=== PATIENT | female | born 1950 | race Caucasian/White ===

== ENCOUNTER 2023-11-12 20:40 | Inpatient (IN) | payer MEDICARE ==
[~2023-11-12] VITALS: Ht 160 cm; Wt 94.8 kg
[2023-11-12 10:00] VITALS: BP 113/61; TEMP 98.1; O2SAT 97
[~2023-11-12 20:40] MED LIST: AMLO-212 PO; DIAZ5TAB4 PO; DIPH25CA83 PO; ESCI20TA PO; LORA2TAB PO
[2023-11-12] MEDS ORDERED: REMEDY ESSENTIAL ZINC PASTE 113 GM TOP PRN (22:00)
[2023-11-12] MEDS ORDERED: APIX5TAB PO (22:31)
[2023-11-12] MEDS ORDERED: SUMA100T16 PO (22:31)
[2023-11-12] MEDS ORDERED: TRAM50TA PO (22:31)
[2023-11-12] MEDS ORDERED: ACET-3117 PO (22:31)
[2023-11-12] MEDS ORDERED: MAG355OR18 PO (22:31)
[2023-11-12] MEDS ORDERED: LORA0.5T48 PO (22:31)
[2023-11-12] MEDS ORDERED: DIVA500T2 PO (22:31)
[2023-11-12] MEDS ORDERED: ESCI10TA PO (22:31)
[2023-11-12] MEDS ORDERED: METO-356 PO (22:31)
[2023-11-12] MEDS ORDERED: PANT40TA49 PO (22:31)
[2023-11-12] MEDS ORDERED: LEVO25TA9 PO (22:31)
[2023-11-12] MEDS ORDERED: LOSA50TA39 PO (22:31)
[2023-11-12] MEDS ORDERED: AZIT500V8 IV (22:31)
[2023-11-12] MEDS ORDERED: SPIR25TA PO (22:31)
[2023-11-12] MEDS ORDERED: MAGN400O6 PO (22:31)
[2023-11-13] MEDS: TRAMADOL HCL 50 MG TABLET PO ONE ×2 (01:15→01:22)
[2023-11-13 05:31] VITALS: BP 127/73; TEMP 98; O2SAT 98
[2023-11-13] MEDS ORDERED: IRBE150T28 PO (11:08)
[2023-11-13] MEDS: MAGNESIUM HYDROXIDE 30 ML LIQUID UDC PO PRN (13:50)
[2023-11-13 15:09] VITALS: BP 154/62; TEMP 98; O2SAT 99
[2023-11-13] MEDS: BISACODYL 10 MG SUPP.RECT RC ONE (16:05)
[2023-11-13] MEDS ORDERED: Medication Not On Formulary EA (Acetaminophen 650 MG) PO SCH (17:00)
[2023-11-13] MEDS ORDERED: Medication Not On Formulary EA (Lorazepam (Ativan) 2 MG) PO PRN (17:00)
[2023-11-13] MEDS: AMLODIPINE 5 MG TABLET PO SCH (17:12)
[2023-11-13] MEDS: APIXABAN 5 MG TABLET PO SCH (17:13)
[2023-11-13] MEDS ORDERED: ALBUTEROL SULFATE 2.5 MG/3 ML NEBU NEB PRN (17:30)
[2023-11-13] MEDS ORDERED: IPRATROPIUM BROMIDE 0.5 MG/2.5 ML NEBU NEB PRN (17:30)
[2023-11-13] MEDS ORDERED: SUMATRIPTAN SUCCINATE 50 MG TABLET PO PRN (17:30)
[2023-11-13] MEDS: DIVALPROEX 500 MG TABLET.DR PO SCH (17:48)
[2023-11-13] MEDS: LOSARTAN POTASSIUM 50 MG TABLET PO SCH (17:49)
[2023-11-13] MEDS: LEVOTHYROXINE SODIUM 25 MCG TABLET PO SCH (17:49)
[2023-11-13] MEDS: SPIRONOLACTONE 25 MG TABLET PO SCH (17:49)
[2023-11-13] MEDS: METOPROLOL SUCCINATE XL 25 MG TAB.SR.24H PO SCH (17:49)
[2023-11-13] MEDS: AZITHROMYCIN 250 MG TABLET PO SCH (18:13)
[2023-11-13 20:44] VITALS: O2SAT 99
[2023-11-13] MEDS: LORAZEPAM 1 MG TABLET PO PRN (22:06)
[2023-11-14 02:39] VITALS: BP 135/65; TEMP 98.2; O2SAT 99
[2023-11-14] MEDS: ACETAMINOPHEN 325 MG TABLET PO PRN (03:06)
[2023-11-14] MEDS ORDERED: AZITHROMYCIN 500 MG VIAL IV SCH (06:00)
[2023-11-14] MEDS: PANTOPRAZOLE SODIUM 40 MG TABLET.DR PO SCH (06:47)
[2023-11-14 06:56] VITALS: BP 135/81; TEMP 97.5; O2SAT 94
[2023-11-14 07:23] LABS: BASOPHILS % (AUTO) 0.3 % (0.0-2.0); EOSINOPHILS % (AUTO) 0.4 % (0.0-7.0); HEMATOCRIT 30.3 % (31.2-41.9); LYMPHOCYTES # (AUTO) 1.2 K/uL (0.8-4.8); LYMPHOCYTES % (AUTO) 11.6 % (20.5-51.5); MEAN CORPUSCULAR HEMOGLOBIN 30.5 uug (24.7-32.8); MEAN CORPUSCULAR HGB CONC 33 g/dL (32.3-35.6); MEAN CORPUSCULAR VOLUME 92.7 fL (75.5-95.3); MONOCYTES # (AUTO) 1.7 K/uL (0.1-1.30); MONOCYTES % (AUTO) 16.2 % (0.0-11.0); NEUTROPHILS # (AUTO) 7.6 K/uL (1.8-8.9); NEUTROPHILS % (AUTO) 71.5 % (38.5-71.5); PLATELET COUNT (AUTO) 388 K/uL (179-408); RED BLOOD CELL COUNT(AUTO) 3.26 MIL/uL (3.63-4.92); RED CELL DISTRIBUTION WIDTH 14.5 % (12.3-17.7); WHITE BLOOD COUNT (AUTO) 10.6 K/uL (3.8-11.8)
[2023-11-14 07:37] LABS: ALBUMIN 2.4 g/dL (3.4-5.0); BILIRUBIN,DIRECT 0.2 mg/dL (0.0-0.2); BILIRUBIN,TOTAL 0.6 mg/dL (0.2-1.0); CREATININE 0.9 mg/dL (0.6-1.3); MAGNESIUM 2.3 mg/dL (1.8-2.4); PHOSPHOROUS 3.1 mg/dL (2.5-4.9); TOTAL PROTEIN, SERUM 6.3 g/dL (6.4-8.2)
[2023-11-14 07:44] LABS: ABG BASE EXCESS 2.5 mmol/L (-2.0-2.0); ABG HCO3 26.5 mmol/L (22.0-26.0); ABG PCO2 38.6 mmHg (35.0-48.0); ABG PH 7.455 (7.340-7.440); ABG PO2 92.8 mmHg (75.0-100.0); ABG SITE RIGHT RADIAL; ABG TOTAL HEMOGLOBIN 10.7 G/dL (12.0-16.0); AaDO2 97.4 mmHg; COHb 0.3 % (0.0-3.9); MetHb 0.3 % (0.0-1.5); O2Hb 96.7 % (94.0-97.0)
[2023-11-14 07:54] LABS: DIFFERENTIAL COMMENT 1
[2023-11-14] MEDS ORDERED: Medication Not On Formulary EA (Irbesartan (Avapro) 150 MG) PO SCH (09:00)
[2023-11-14] MEDS ORDERED: Medication Not On Formulary EA (Escitalopram Oxalate (Lexapro) 20 MG) PO SCH (09:00)
[2023-11-14] MEDS: ESCITALOPRAM OXALATE 10 MG TABLET PO SCH (10:30)
[2023-11-14 15:36] VITALS: BP 120/70; TEMP 98.2; O2SAT 98
[2023-11-14 16:52] LABS: LYMPHOCYTES % (MANUAL) 13 % (20-40); MONOCYTES % (MANUAL) 15 % (2-10); MYELOCYTES % 1 % (0-0); NEUTROPHILS % (MANUAL) 71 % (42-75)
[2023-11-14 16:53] LABS: ANISOCYTOSIS 1+; PLATELET ESTIMATE ADEQUATE
[2023-11-14 21:18] VITALS: BP 117/67; TEMP 98; O2SAT 91
[2023-11-15 06:51] VITALS: BP 131/80; TEMP 98; O2SAT 90
[2023-11-15] MEDS: ENSURE CLEAR 240 ML LIQUID (MIX BERRY) PO SCH (13:16)
[2023-11-15] MEDS: OXYCODONE HCL 5 MG TABLET PO PRN (14:44)
[2023-11-15 16:29] VITALS: BP 113/62; TEMP 98; O2SAT 94
[2023-11-15] MEDS: DOCUSATE SODIUM 100 MG CAPSULE PO SCH (21:15)
[2023-11-15] MEDS: MEGESTROL ACETATE 400 MG/10 ML LIQUID UDC PO SCH (21:16)
[2023-11-16 05:32] VITALS: O2SAT 98
[2023-11-16 07:21] LABS: BASOPHILS % (AUTO) 0.4 % (0.0-2.0); HEMATOCRIT 32.2 % (31.2-41.9); HEMOGLOBIN 10.2 g/dL (10.9-14.3); LYMPHOCYTES # (AUTO) 1.8 K/uL (0.8-4.8); LYMPHOCYTES % (AUTO) 15.4 % (20.5-51.5); MEAN CORPUSCULAR HEMOGLOBIN 29.3 uug (24.7-32.8); MEAN CORPUSCULAR HGB CONC 32 g/dL (32.3-35.6); MEAN CORPUSCULAR VOLUME 92.2 fL (75.5-95.3); NEUTROPHILS # (AUTO) 7.9 K/uL (1.8-8.9); NEUTROPHILS % (AUTO) 67.2 % (38.5-71.5); PLATELET COUNT (AUTO) 448 K/uL (179-408); RED CELL DISTRIBUTION WIDTH 14.7 % (12.3-17.7); WHITE BLOOD COUNT (AUTO) 11.8 K/uL (3.8-11.8)
[2023-11-16 07:34] LABS: CALCIUM 9.7 mg/dL (8.5-10.1); CARBON DIOXIDE 28 mmol/L (21-32); CHLORIDE 101 mmol/L (98-107); GLUCOSE 86 mg/dL (74-106); POTASSIUM 4.7 mmol/L (3.5-5.1); SODIUM SERUM 136 mmol/L (136-145); UREA NITROGEN, BLOOD 31 mg/dL (7-18)
[2023-11-16 07:40] LABS: DIFFERENTIAL COMMENT 1
[2023-11-16 07:47] LABS: NEUTROPHILS % (MANUAL) 0 % (42-75)
[2023-11-16 07:48] LABS: LYMPHOCYTES % (MANUAL) 0 % (20-40); THYROID STIMULATING HORMONE 2.772 mIU/mL (0.358-3.740)
[2023-11-16] MEDS ORDERED: IOHEXOL 300MG/ML 100 ML INFUS..BTL ONE (07:48)
[2023-11-16] MEDS ORDERED: SWABABLE VALVE TRANSFER SET EA MC ONE (07:49)
[2023-11-16] MEDS ORDERED: IV NORMAL SALINE 250 ML IV ONE (07:49)
[2023-11-16] MEDS ORDERED: KETOROLAC TROMETHAMINE 30 MG INJ IVP ONE (14:30)
[2023-11-16] MEDS: KETOROLAC TROMETHAMINE 15 MG INJ IVP ONE (15:06)
[2023-11-16 15:30] VITALS: BP 124/79; TEMP 98; O2SAT 91
[2023-11-16] MEDS ORDERED: DOCU100T2 PO (18:37)
[2023-11-16] MEDS ORDERED: ALBU2.5V38 NEB (18:37)
[2023-11-16] MEDS ORDERED: MEGE400O5 PO (18:55)
[2023-11-16] MEDS ORDERED: OXYC5CAP18 PO (18:55)
[2023-11-16] MEDS ORDERED: LACT296L PO (18:55)
[2023-11-16] MEDS ORDERED: IPRA0.2S6 NEB (18:55)
[2023-11-16] MEDS ORDERED: ZINC113P3 TP (19:01)
[2023-11-18 01:06] LABS: FOLATE (FOLIC ACID), SERUM 4.3 ng/mL (>3.0)
[2023-11-18 08:06] LABS: *IMMUNOGLOBULIN G, SERUM 863 mg/dL (586-1602); IMMUNOGLOBULIN A, SERUM 196 mg/dL (64-422); IMMUNOGLOBULIN M, SERUM 159 mg/dL (26-217)
[2023-11-18 10:07] LABS: A/G RATIO 0.9 (0.7-1.7); ALBUMIN 2.7 g/dL (2.9-4.4); ALPHA-1-GLOBULIN 0.4 g/dL (0.0-0.4); ALPHA-2-GLOBULIN 0.6 g/dL (0.4-1.0); BETA GLOBULIN 1.1 g/dL (0.7-1.3); GAMMA GLOBULIN 0.8 g/dL (0.4-1.8); GLOBULIN, TOTAL 2.9 g/dL (2.2-3.9); M-SPIKE Not Observed g/dL (Not Observed)
[2023-11-20 07:10] LABS: FREE KAPPA LT CHAINS SERUM 47.5 mg/L (3.3-19.4); FREE LAMBDA LT CHAIN SERUM 34.7 mg/L (5.7-26.3); KAPPA/LAMBDA RATIO SERUM 1.37 (0.26-1.65)
== END 2023-11-16 16:35 | disposition short-term general hospital (02) | DRG 559 ==
PROVIDERS: ADMIT Physical Medicine & Rehabilitation Pain Medicine; ATTEND Physical Medicine & Rehabilitation Pain Medicine
DX: S42.212D Unspecified displaced fracture of surgical neck of left humerus, subsequent encounter for fracture with routine healing (principal); J15.9 Unspecified bacterial pneumonia; E44.1 Mild protein-calorie malnutrition; J44.0 Chronic obstructive pulmonary disease with (acute) lower respiratory infection; C34.92 Malignant neoplasm of unspecified part of left bronchus or lung; J91.0 Malignant pleural effusion; C79.51 Secondary malignant neoplasm of bone; R53.1 Weakness; Z68.37 Body mass index [BMI] 37.0-37.9, adult; M43.16 Spondylolisthesis, lumbar region; W18.30XD Fall on same level, unspecified, subsequent encounter; K21.9 Gastro-esophageal reflux disease without esophagitis; I10 Essential (primary) hypertension; D75.839 Thrombocytosis, unspecified; E03.9 Hypothyroidism, unspecified; E66.9 Obesity, unspecified; Z86.73 Personal history of transient ischemic attack (TIA), and cerebral infarction without residual deficits; D64.9 Anemia, unspecified; E88.09 Other disorders of plasma-protein metabolism, not elsewhere classified; F41.9 Anxiety disorder, unspecified; K43.9 Ventral hernia without obstruction or gangrene; K57.30 Diverticulosis of large intestine without perforation or abscess without bleeding; D18.03 Hemangioma of intra-abdominal structures; M48.54XD Collapsed vertebra, not elsewhere classified, thoracic region, subsequent encounter for fracture with routine healing; I48.91 Unspecified atrial fibrillation; Z88.0 Allergy status to penicillin; Z88.5 Allergy status to narcotic agent; Z88.8 Allergy status to other drugs, medicaments and biological substances; Z90.710 Acquired absence of both cervix and uterus; Z87.891 Personal history of nicotine dependence; Z80.1 Family history of malignant neoplasm of trachea, bronchus and lung; Z82.49 Family history of ischemic heart disease and other diseases of the circulatory system
CPT/HCPCS: 36415; 36600; 70030-TC; 71045; 71260; 71270; 73502; 82378; 82746; 82784; 82785; 82803; 83550; 83735; 84100; 84155; 84165; 84443; 85025; 85610; 85730; 86140; 86334; J0456; J1885; J8999; Q0144; Q9967

== ENCOUNTER 2023-11-16 16:46 | Inpatient (IN) | payer MEDICARE ==
[~2023-11-16] VITALS: Ht 157.5 cm; Wt 93.9 kg
[~2023-11-16 16:46] MED LIST changes: +ACET-3117 PO; -AMLO-212 PO; +APIX5TAB PO; +AZIT500V8 IV; -DIAZ5TAB4 PO; -DIPH25CA83 PO; +DIVA500T2 PO; +IRBE150T28 PO; +LEVO25TA9 PO; +LOSA50TA39 PO; +MAG355OR18 PO; +MAGN400O6 PO; +METO-356 PO; +PANT40TA49 PO; +SPIR25TA PO; +SUMA100T16 PO; +TRAM50TA PO
[2023-11-16] MEDS ORDERED: Medication Not On Formulary EA (Lorazepam (Ativan) 2 MG) PO PRN (18:00)
[2023-11-16] MEDS ORDERED: ONDANSETRON 4 MG/2 ML VIAL IV PRN (18:00)
[2023-11-16] MEDS ORDERED: Medication Not On Formulary EA (Acetaminophen 650 MG) PO SCH (18:00)
[2023-11-16] MEDS ORDERED: MAGNESIUM HYDROXIDE 30 ML LIQUID UDC PO PRN ×3 (18:00→19:10)
[2023-11-16] MEDS ORDERED: MAG HYDROX/AL HYDROX/SIMETH 30 ML LIQUID UDC PO PRN (18:00)
[2023-11-16] MEDS ORDERED: REMEDY ESSENTIAL ZINC PASTE 113 GM TP PRN (18:00)
[2023-11-16] MEDS ORDERED: DOCU100T2 PO (18:37)
[2023-11-16] MEDS ORDERED: ALBU2.5V38 NEB (18:37)
[2023-11-16] MEDS: APIXABAN 5 MG TABLET PO SCH (18:42)
[2023-11-16] MEDS ORDERED: IPRA0.2S6 NEB (18:55)
[2023-11-16] MEDS ORDERED: LACT296L PO (18:55)
[2023-11-16] MEDS ORDERED: OXYC5CAP18 PO (18:55)
[2023-11-16] MEDS ORDERED: MEGE400O5 PO (18:55)
[2023-11-16] MEDS ORDERED: ZINC113P3 TP (19:01)
[2023-11-16] MEDS ORDERED: SUMATRIPTAN SUCCINATE 50 MG TABLET PO PRN (19:15)
[2023-11-16] MEDS: LORAZEPAM 1 MG TABLET PO PRN (19:19)
[2023-11-16] MEDS: ENSURE CLEAR 240 ML LIQUID (MIX BERRY) PO SCH (19:26)
[2023-11-16 20:35] VITALS: BP 119/44; TEMP 97.5; O2SAT 97
[2023-11-16] MEDS: MEGESTROL ACETATE 400 MG/10 ML LIQUID UDC PO SCH (21:00)
[2023-11-16] MEDS: DOCUSATE SODIUM 100 MG CAPSULE PO SCH (21:33)
[2023-11-16] MEDS: OXYCODONE HCL 5 MG TABLET PO PRN (21:43)
[2023-11-17] VITALS (7 sets, daily range): BP systolic 96–125; BP diastolic 62–70; TEMP 97.3–97.7; O2SAT 95–97
[2023-11-17] MEDS: ACETAMINOPHEN 325 MG TABLET PO PRN (04:57)
[2023-11-17 06:43] LABS: BASOPHILS % (AUTO) 0.2 % (0.0-2.0); EOSINOPHILS % (AUTO) 0.1 % (0.0-7.0); HEMATOCRIT 31.7 % (31.2-41.9); HEMOGLOBIN 10.2 g/dL (10.9-14.3); LYMPHOCYTES # (AUTO) 1.7 K/uL (0.8-4.8); MEAN CORPUSCULAR HEMOGLOBIN 29.6 uug (24.7-32.8); MEAN CORPUSCULAR HGB CONC 32 g/dL (32.3-35.6); MONOCYTES # (AUTO) 1.9 K/uL (0.1-1.30); MONOCYTES % (AUTO) 17.3 % (0.0-11.0); NEUTROPHILS # (AUTO) 7.4 K/uL (1.8-8.9); NEUTROPHILS % (AUTO) 67.4 % (38.5-71.5); PLATELET COUNT (AUTO) 403 K/uL (179-408); RED BLOOD CELL COUNT(AUTO) 3.44 MIL/uL (3.63-4.92); RED CELL DISTRIBUTION WIDTH 14.9 % (12.3-17.7)
[2023-11-17 06:46] LABS: DIFFERENTIAL COMMENT 1
[2023-11-17] MEDS: PANTOPRAZOLE SODIUM 40 MG TABLET.DR PO SCH (07:04)
[2023-11-17] MEDS: LEVOTHYROXINE SODIUM 25 MCG TABLET PO SCH (07:04)
[2023-11-17 07:06] LABS: CALCIUM 9.8 mg/dL (8.5-10.1); CARBON DIOXIDE 28 mmol/L (21-32); CHLORIDE 101 mmol/L (98-107); GLUCOSE 74 mg/dL (74-106); MAGNESIUM 2.2 mg/dL (1.8-2.4); PHOSPHOROUS 3.7 mg/dL (2.5-4.9); POTASSIUM 4.8 mmol/L (3.5-5.1); SODIUM SERUM 136 mmol/L (136-145); UREA NITROGEN, BLOOD 34 mg/dL (7-18)
[2023-11-17 08:06] LABS: LYMPHOCYTES % (MANUAL) 13 % (20-40); MONOCYTES % (MANUAL) 11 % (2-10); MYELOCYTES % 3 % (0-0); NEUTROPHILS % (MANUAL) 72 % (42-75); PLATELET ESTIMATE ADEQUATE
[2023-11-17] MEDS ORDERED: AZITHROMYCIN 500 MG VIAL IV SCH (09:00)
[2023-11-17] MEDS: LOSARTAN POTASSIUM 50 MG TABLET PO SCH (09:00)
[2023-11-17] MEDS: METOPROLOL SUCCINATE XL 25 MG TAB.SR.24H PO SCH (09:00)
[2023-11-17] MEDS ORDERED: Medication Not On Formulary EA (Escitalopram Oxalate (Lexapro) 20 MG) PO SCH (09:00)
[2023-11-17] MEDS ORDERED: Medication Not On Formulary EA (Irbesartan (Avapro) 150 MG) PO SCH (09:00)
[2023-11-17] MEDS: SPIRONOLACTONE 25 MG TABLET PO SCH (09:43)
[2023-11-17] MEDS: DIVALPROEX 500 MG TABLET.DR PO SCH (09:45)
[2023-11-17] MEDS: ESCITALOPRAM OXALATE 10 MG TABLET PO SCH (09:46)
[2023-11-17] MEDS: KETOROLAC TROMETHAMINE 15 MG INJ IVP PRN (11:06)
[2023-11-17] MEDS: ALBUTEROL SULFATE 2.5 MG/3 ML NEBU NEB PRN (21:00)
[2023-11-17] MEDS: IPRATROPIUM BROMIDE 0.5 MG/2.5 ML NEBU NEB PRN (21:00)
[2023-11-18] VITALS (15 sets, daily range): BP systolic 96–109; BP diastolic 53–63; TEMP 97.3–98.3; O2SAT 90–99
[2023-11-18 07:00] LABS: CALCIUM 10.1 mg/dL (8.5-10.1); CREATININE 1.2 mg/dL (0.6-1.3); MAGNESIUM 2.3 mg/dL (1.8-2.4); PHOSPHOROUS 4.1 mg/dL (2.5-4.9); POTASSIUM 5.6 mmol/L (3.5-5.1)
[2023-11-18 07:03] LABS: BASOPHILS % (AUTO) 0.3 % (0.0-2.0); HEMATOCRIT 31.8 % (31.2-41.9); HEMOGLOBIN 10.3 g/dL (10.9-14.3); LYMPHOCYTES # (AUTO) 1.4 K/uL (0.8-4.8); LYMPHOCYTES % (AUTO) 11.2 % (20.5-51.5); MEAN CORPUSCULAR HEMOGLOBIN 29.8 uug (24.7-32.8); MEAN CORPUSCULAR HGB CONC 32 g/dL (32.3-35.6); MEAN CORPUSCULAR VOLUME 92.2 fL (75.5-95.3); MONOCYTES # (AUTO) 1.9 K/uL (0.1-1.30); NEUTROPHILS # (AUTO) 9.5 K/uL (1.8-8.9); NEUTROPHILS % (AUTO) 73.5 % (38.5-71.5); PLATELET COUNT (AUTO) 450 K/uL (179-408); RED BLOOD CELL COUNT(AUTO) 3.44 MIL/uL (3.63-4.92); RED CELL DISTRIBUTION WIDTH 14.8 % (12.3-17.7); WHITE BLOOD COUNT (AUTO) 12.9 K/uL (3.8-11.8)
[2023-11-18 07:10] LABS: DIFFERENTIAL COMMENT 1
[2023-11-18] MEDS: MORPHINE SULFATE 2 MG/1 ML DISP.SYRIN IV PRN (10:25)
[2023-11-18 11:48] LABS: ALBUMIN 2.5 g/dL (3.4-5.0); BILIRUBIN,DIRECT 0.1 mg/dL (0.0-0.2); BILIRUBIN,TOTAL 0.4 mg/dL (0.2-1.0); TOTAL PROTEIN, SERUM 6.5 g/dL (6.4-8.2)
[2023-11-18] MEDS: MORPHINE SULFATE 4 MG/1 ML DISP.SYRIN IV PRN (15:29)
[2023-11-18 15:30] LABS: ANISOCYTOSIS 1+; LYMPHOCYTES % (MANUAL) 18 % (20-40); MONOCYTES % (MANUAL) 14 % (2-10); NEUTROPHILS % (MANUAL) 68 % (42-75); PLATELET ESTIMATE ADEQUATE
[2023-11-18] MEDS ORDERED: AZITHROMYCIN IV 500 MG in IV DEXTROSE 5% 250 ML IV SCH (16:30)
[2023-11-18] MEDS ORDERED: CEFTRIAXONE 1 G in IV DEXTROSE 5% 50 ML IV SCH (16:30)
[2023-11-18] MEDS: ZOLPIDEM 5 MG TABLET PO PRN (20:03)
[2023-11-18] MEDS: DOXYCYCLINE HYCLATE IV 100 MG in IV DEXTROSE 5% 100 ML IV SCH (20:04)
[2023-11-19 04:49] VITALS: BP 136/66; TEMP 97.7; O2SAT 90
[2023-11-19] MEDS: diphenhydrAMINE 50 MG/1 ML VIAL IVP ONE (06:46)
[2023-11-19 07:03] LABS: *BLOOD, URINE NEGATIVE (NEGATIVE); *CLARITY,URINE CLOUDY (CLEAR); *COLOR,URINE YELLOW (YELLOW); *KETONES,URINE NEGATIVE (NEGATIVE); *PROTEIN,URINE 1+ (NEGATIVE); *UROBILINOGEN,URINE 0.2 E.U./dl (NORMAL); LEUKOCYTE ESTERASE ,URINE NEGATIVE (NEGATIVE); NITRITE, URINE NEGATIVE (NEGATIVE); PH,URINE 5.5 (5.0-8.0); UGLUCOSE NEGATIVE (NEGATIVE)
[2023-11-19 07:12] LABS: BASOPHILS % (AUTO) 0.2 % (0.0-2.0); HEMOGLOBIN 10.3 g/dL (10.9-14.3); LYMPHOCYTES # (AUTO) 1.7 K/uL (0.8-4.8); LYMPHOCYTES % (AUTO) 10.1 % (20.5-51.5); MEAN CORPUSCULAR HGB CONC 32 g/dL (32.3-35.6); MEAN CORPUSCULAR VOLUME 92.9 fL (75.5-95.3); MONOCYTES # (AUTO) 1.9 K/uL (0.1-1.30); MONOCYTES % (AUTO) 11.4 % (0.0-11.0); NEUTROPHILS # (AUTO) 13.2 K/uL (1.8-8.9); NEUTROPHILS % (AUTO) 78.3 % (38.5-71.5); PLATELET COUNT (AUTO) 474 K/uL (179-408); RED BLOOD CELL COUNT(AUTO) 3.45 MIL/uL (3.63-4.92); RED CELL DISTRIBUTION WIDTH 15.4 % (12.3-17.7); WHITE BLOOD COUNT (AUTO) 16.8 K/uL (3.8-11.8)
[2023-11-19 07:17] LABS: *BILIRUBIN,URIN 1+ (NEGATIVE)
[2023-11-19 07:21] LABS: DIFFERENTIAL COMMENT 1
[2023-11-19 07:27] LABS: THYROID STIMULATING HORMONE 3.402 mIU/mL (0.358-3.740)
[2023-11-19 08:18] LABS: ALANINE AMINOTRANSFERASE 25 U/L (14-59); ALBUMIN 2.4 g/dL (3.4-5.0); ALKALINE PHOSPHATASE 79 U/L (50-136); ASPARTATE AMINOTRANSFERASE 70 U/L (15-37); BILIRUBIN,TOTAL 0.4 mg/dL (0.2-1.0); CALCIUM 10.1 mg/dL (8.5-10.1); CARBON DIOXIDE 27 mmol/L (21-32); CHLORIDE 99 mmol/L (98-107); CHOLESTEROL 180 mg/dL (<200); CREATININE 1.6 mg/dL (0.6-1.3); GLUCOSE 87 mg/dL (74-106); HDL CHOLESTEROL 40 mg/dL (40-60); MAGNESIUM 2.4 mg/dL (1.8-2.4); PHOSPHOROUS 4.4 mg/dL (2.5-4.9); POTASSIUM 4.9 mmol/L (3.5-5.1); SODIUM SERUM 136 mmol/L (136-145); TOTAL PROTEIN, SERUM 6.7 g/dL (6.4-8.2); TRIGLYCERIDES 159 MG/DL (30-150); UREA NITROGEN, BLOOD 46 mg/dL (7-18)
[2023-11-19] MEDS ORDERED: IV NS 1000 ML 1,000 ML IV PRN (08:30)
[2023-11-19 09:22] LABS: BACTERIA,URINE MANY /HPF (NONE SEEN); SQUAMOUS EPITHELIAL CELL,UR MANY /HPF (NONE SEEN); WBC,URINE 0-3 /HPF (0-3)
[2023-11-19 10:54] VITALS: BP 115/56; TEMP 97.5; O2SAT 94
[2023-11-19] MEDS: PROTEIN SUPPLEMENT (PROSTAT) 30 ML LIQUID PO SCH (14:14)
[2023-11-19 15:41] VITALS: BP 99/68; TEMP 98; O2SAT 94
[2023-11-19 16:30] VITALS: O2SAT 96
[2023-11-19 20:00] VITALS: BP 120/87; TEMP 97.8; O2SAT 92
[2023-11-19] MEDS: METRONIDAZOLE 500 MG TABLET PO SCH (23:28)
[2023-11-25] MEDS ORDERED: APIXABAN 5 MG TABLET PO SCH (08:00)
== END 2023-11-20 02:30 | disposition short-term general hospital (02) | DRG 180 ==
LOC: MEDSURG3 16:46
PROVIDERS: ADMIT Student in an Organized Health Care Education/Training Program; ATTEND Student in an Organized Health Care Education/Training Program
DX: C34.92 Malignant neoplasm of unspecified part of left bronchus or lung (principal); G92.8 Other toxic encephalopathy; J15.9 Unspecified bacterial pneumonia; N17.0 Acute kidney failure with tubular necrosis; J96.01 Acute respiratory failure with hypoxia; C79.51 Secondary malignant neoplasm of bone; J44.0 Chronic obstructive pulmonary disease with (acute) lower respiratory infection; J90 Pleural effusion, not elsewhere classified; C77.1 Secondary and unspecified malignant neoplasm of intrathoracic lymph nodes; E44.1 Mild protein-calorie malnutrition; M48.54XA Collapsed vertebra, not elsewhere classified, thoracic region, initial encounter for fracture; S42.212D Unspecified displaced fracture of surgical neck of left humerus, subsequent encounter for fracture with routine healing; W19.XXXD Unspecified fall, subsequent encounter; I48.91 Unspecified atrial fibrillation; D64.9 Anemia, unspecified; E03.9 Hypothyroidism, unspecified; E66.9 Obesity, unspecified; Z68.37 Body mass index [BMI] 37.0-37.9, adult; F41.9 Anxiety disorder, unspecified; G47.30 Sleep apnea, unspecified; K21.9 Gastro-esophageal reflux disease without esophagitis; D75.839 Thrombocytosis, unspecified; D72.821 Monocytosis (symptomatic); I10 Essential (primary) hypertension; E88.09 Other disorders of plasma-protein metabolism, not elsewhere classified; E87.5 Hyperkalemia; G89.3 Neoplasm related pain (acute) (chronic); F32.A Depression, unspecified; K57.30 Diverticulosis of large intestine without perforation or abscess without bleeding; K43.9 Ventral hernia without obstruction or gangrene; K80.20 Calculus of gallbladder without cholecystitis without obstruction; K76.9 Liver disease, unspecified; Z90.2 Acquired absence of lung [part of]; Z88.0 Allergy status to penicillin; Z79.01 Long term (current) use of anticoagulants; Z88.8 Allergy status to other drugs, medicaments and biological substances; Z79.890 Hormone replacement therapy; Z79.899 Other long term (current) drug therapy; R62.7 Adult failure to thrive
CPT/HCPCS: 36415; 70030-TC; 71045; 83735; 84100; 84443; 85025; 85730; 86140; 94640; 94664; G0378; J1200; J1885; J2270; J3490; J3590; J7060; J8999